=== PATIENT | male | born 1950 | race African-American/Black ===

== ENCOUNTER 2018-04-13 13:39 | Emergency (ER) | payer BC, MEDICARE ==
[~2018-04-13] VITALS: Ht 175.3 cm; Wt 89.0 kg
[2018-04-13 16:59] VITALS: BP 138/88
== END 2018-04-13 18:50 | disposition home or self-care (01) ==
LOC: ER 14:10
DX: M79.89 Other specified soft tissue disorders (principal); L03.115 Cellulitis of right lower limb; F41.9 Anxiety disorder, unspecified; I10 Essential (primary) hypertension; R56.9 Unspecified convulsions; F43.10 Post-traumatic stress disorder, unspecified
CPT/HCPCS: 93971; 99284